=== PATIENT | female | born 1965 | race Caucasian/White ===

== ENCOUNTER → 2016-10-10 | Outpatient (CLI) | payer BC, OTHER ==
[~2016-10-10] MED LIST: ERYTHROMYCIN250 M1 PO; LEVO-T88 MCG PO; PRILOSEC20 MG PO
== END | disposition home or self-care (01) ==
LOC: CDC 14:06
DX: Z01.810 Encounter for preprocedural cardiovascular examination (principal)
CPT/HCPCS: 93000

== ENCOUNTER 2016-10-17 05:36 | Day surgery (SDC) | payer BC, OTHER ==
[~2016-10-17] VITALS: Ht 162.6 cm; Wt 81.0 kg
[2016-10-17 06:38] VITALS: BP 133/74
[2016-10-17 10:15] VITALS: BP 134/70
[2016-10-17 11:00] VITALS: BP 140/86
== END 2016-10-17 11:15 | disposition home or self-care (01) ==
LOC: SDC 05:36
DX: N95.0 Postmenopausal bleeding (principal); N84.0 Polyp of corpus uteri; D25.1 Intramural leiomyoma of uterus; E66.3 Overweight; Z68.31 Body mass index [BMI] 31.0-31.9, adult; K21.9 Gastro-esophageal reflux disease without esophagitis; E03.9 Hypothyroidism, unspecified; Z80.41 Family history of malignant neoplasm of ovary; Z80.0 Family history of malignant neoplasm of digestive organs; Z80.1 Family history of malignant neoplasm of trachea, bronchus and lung
CPT/HCPCS: 88305; J0690; J1100; J1885; J2250; J2405; J3010